=== PATIENT | female | born 1975 | race Caucasian/White ===

== ENCOUNTER → 2017-05-16 | Outpatient (CLI) | payer BC ==
[2016-08-01 01:00] VITALS: BP 138/88
[~2017-05-16] MED LIST: ATORVASTATIN CA10 MG PO; BENTYL PO; BUFEN200 MG PO; CIPRO 500MG TA500 MG PO; CLINDAMYCIN HC300 MG PO; CLINDAMYCIN300 MG PO; HCTZ 25MG25 MG PO; HCTZ PO; LEVOTHYROXIN0.025 MG PO; LEVOTHYROXINE0.05 MG PO; MELOXICAM7.5 MG PO; METRONIDAZOLE500 MG PO; NORCO 325 MG-51 TA1 PO; NORETHINDRONE AC5 M1 PO; OMEPRAZOLE40 MG PO; POTASSIUM CHLO20 ME3 PO; ULTRAM50 MG PO; ZOFRAN ODT8 MG PO
== END ==
LOC: RAD 07:45
DX: M79.671 Pain in right foot (principal); M77.31 Calcaneal spur, right foot

== ENCOUNTER 2018-02-01 20:29 | Emergency (ER) | payer BC ==
[~2018-02-01] VITALS: Ht 165.1 cm; Wt 115.9 kg
[2018-02-01] MEDS ORDERED: WELLBUTRIN (20:54)
[2018-02-01 21:01] LABS: BASO # 0.1 (0.02-0.10); EOS # 0.2 (0.04-0.40); EOS % 1.8 % (1.0-5.0); HEMATOCRIT 43.2 % (37.0-47.0); HEMOGLOBIN 14.9 g/dL (12.5-16.0); LYMPH# 2.6 (1.50-4.00); MEAN CELL VOLUME 91 fl (78-100); MEAN CORPUSCULAR HEMOGLOBIN 31 pg (27-31); MEAN CORPUSCULAR HGB CONC 35 g/dL (33-37); MEAN PLATELET VOLUME 10.3 fl (7.4-10.4); MONO # 0.5 (0.20-0.80); NEU # 6.3 (1.40-6.50); PLATELET COUNT 306 K/mm3 (130-400); RED BLOOD COUNT 4.74 M/mm3 (4.10-5.30); RED CELL DISTRIBUTION WIDTH 13.1 % (11.5-14.5); WHITE BLOOD COUNT 9.7 K/mm3 (4.8-10.8)
[2018-02-01 21:11] LABS: ALBUMIN 4.1 g/dL (3.5-5.0); BUN/CREATININE RATIO 13.1 (6.0-26.0); CALCIUM 8.7 mg/dL (8.4-10.2); POTASSIUM 3.2 mmol/L (3.6-5.0); TOTAL BILIRUBIN 0.6 mg/dL (0.2-1.3); TOTAL PROTEIN 7.5 g/dL (6.3-8.2)
[2018-02-01 21:38] LABS: D-DIMER 0.14 mg/L FEU (0.15-0.50)
[2018-02-01] MEDS ORDERED: POTASSIUM CHLO20 ME4 PO (21:55)
[2018-02-01] MEDS ORDERED: METOPROLOL SUCC25 M1 PO (21:55)
[2018-02-01 22:06] VITALS: BP 145/98
== END 2018-02-01 22:06 | disposition home or self-care (01) ==
LOC: ED 20:29
PROVIDERS: Family Medicine
DX: R00.2 Palpitations (principal); R06.4 Hyperventilation; I10 Essential (primary) hypertension; F41.9 Anxiety disorder, unspecified; E03.9 Hypothyroidism, unspecified; Z79.899 Other long term (current) drug therapy

== ENCOUNTER → 2018-02-27 | Outpatient (CLI) | payer BC ==
[2018-02-01 22:06] VITALS: BP 145/98
[~2018-02-27] MED LIST changes: +METOPROLOL SUCC25 M1 PO; +POTASSIUM CHLO20 ME4 PO; +WELLBUTRIN
== END ==
LOC: MAMMO 08:26
DX: Z12.31 Encounter for screening mammogram for malignant neoplasm of breast (principal)

== ENCOUNTER → 2018-03-10 | Outpatient (CLI) | payer BC | LOC: MAMMO 08:24 | DX: N60.01 Solitary cyst of right breast (principal) ==

== ENCOUNTER 2018-03-23 21:44 | Emergency (ER) | payer BC ==
[~2018-03-23] VITALS: Ht 162.6 cm; Wt 118.2 kg
[2018-03-23] MEDS ORDERED: METOPROLOL SUCC25 M1 PO (22:04)
[2018-03-23] MEDS ORDERED: NORCO 325 MG-51 TA1 PO (22:50)
[2018-03-23] MEDS ORDERED: ZOFRAN ODT4 MG PO (22:50)
[2018-03-23 23:00] VITALS: BP 150/91
== END 2018-03-23 23:00 | disposition home or self-care (01) ==
LOC: ED 21:44
DX: S06.0X0A Concussion without loss of consciousness, initial encounter (principal); S00.31XA Abrasion of nose, initial encounter; W10.8XXA Fall (on) (from) other stairs and steps, initial encounter; Y92.008 Other place in unspecified non-institutional (private) residence as the place of occurrence of the external cause; I10 Essential (primary) hypertension; Z79.899 Other long term (current) drug therapy

== ENCOUNTER → 2018-06-09 | Outpatient (CLI) | payer BC ==
[~2018-06-09] MED LIST changes: +ZOFRAN ODT4 MG PO
== END ==
LOC: RAD 09:51
DX: R10.84 Generalized abdominal pain (principal); I10 Essential (primary) hypertension; E03.9 Hypothyroidism, unspecified; E78.2 Mixed hyperlipidemia

== ENCOUNTER → 2018-07-07 | Day surgery (SDC) | payer BC | LOC: MSO 10:19 | DX: K29.00 Acute gastritis without bleeding (principal); K21.9 Gastro-esophageal reflux disease without esophagitis; I10 Essential (primary) hypertension; F17.210 Nicotine dependence, cigarettes, uncomplicated; Z79.899 Other long term (current) drug therapy; E07.9 Disorder of thyroid, unspecified; D64.9 Anemia, unspecified; E66.01 Morbid (severe) obesity due to excess calories | CPT/HCPCS: 00731; A4649; J2704; J3010; J7120 ==

== ENCOUNTER → 2019-03-18 | Outpatient (CLI) | payer BC | LOC: MAMMO 03-11 08:30 | DX: Z12.31 Encounter for screening mammogram for malignant neoplasm of breast (principal) ==

== ENCOUNTER → 2020-01-15 | Outpatient (CLI) | payer BC | LOC: RAD 17:06 | DX: M25.562 Pain in left knee (principal) ==

== ENCOUNTER → 2020-03-29 | Outpatient (CLI) | payer BC | LOC: MAMMO 08:08 | DX: Z12.31 Encounter for screening mammogram for malignant neoplasm of breast (principal); N63.10 Unspecified lump in the right breast, unspecified quadrant ==

== ENCOUNTER → 2020-05-31 | Outpatient (CLI) | payer BC | LOC: PT 09:29 → EDSTATUS 09:30 | DX: Z98.890 Other specified postprocedural states (principal) ==

== ENCOUNTER 2020-07-14 09:15 | Outpatient (RCR) | payer BC | END 2020-07-14 09:45 | disposition home or self-care (01) | LOC: PT 09:15 | DX: Z98.890 Other specified postprocedural states (principal) ==

== ENCOUNTER → 2020-12-08 | Outpatient (REF) ==
[~2020-12-08] MED LIST changes: +BENTYL 20MG20 MG/TAB PO; -BENTYL PO; +DITROPAN 5MG TAB5 MG PO; +HYDROCHLOROTH12.5 M2 PO; +ROSUVASTATIN CA40 MG PO
== END ==
LOC: LAB 08:17 → EDSTATUS 08:18
DX: N89.8 Other specified noninflammatory disorders of vagina (principal)

== ENCOUNTER → 2021-05-10 | Outpatient (CLI) | payer BC | LOC: MAMMO 04-04 08:30 | DX: Z12.31 Encounter for screening mammogram for malignant neoplasm of breast (principal); R92.0 Mammographic microcalcification found on diagnostic imaging of breast ==

== ENCOUNTER → 2021-05-15 | Outpatient (CLI) | payer BC | LOC: MAMMO 06:57 | DX: R92.0 Mammographic microcalcification found on diagnostic imaging of breast (principal) ==

== ENCOUNTER 2021-05-26 16:17 | Emergency (ER) | payer BC ==
[~2021-05-26] VITALS: Ht 165.1 cm; Wt 118.2 kg
[~2021-05-26 16:17] MED LIST changes: -DITROPAN 5MG TAB5 MG PO; -HYDROCHLOROTH12.5 M2 PO; -ROSUVASTATIN CA40 MG PO
[2021-05-26] MEDS ORDERED: HYDROCHLOROTH12.5 M2 PO (16:59)
[2021-05-26] MEDS ORDERED: DITROPAN 5MG TAB5 MG PO (17:00)
[2021-05-26] MEDS ORDERED: NORETHINDRONE AC5 M1 PO (17:00)
[2021-05-26] MEDS ORDERED: ROSUVASTATIN CA40 MG PO (17:03)
[2021-05-26 17:43] LABS: BASO # 0.05 (0.02-0.10); EOS # 0.14 (0.04-0.40); EOS % 1.8 % (1.0-5.0); HEMATOCRIT 40.2 % (37.0-47.0); HEMOGLOBIN 13.7 g/dL (12.5-16.0); MEAN CELL VOLUME 90 fl (78-100); MEAN CORPUSCULAR HEMOGLOBIN 31 pg (27-31); MEAN CORPUSCULAR HGB CONC 34 g/dL (33-37); MEAN PLATELET VOLUME 10.6 fl (7.4-10.4); MONO # 0.54 (0.20-0.80); NEU # 4.48 (1.40-6.50); PLATELET COUNT 256 K/mm3 (130-400); RED BLOOD COUNT 4.45 M/mm3 (4.10-5.30); WHITE BLOOD COUNT 7.8 K/mm3 (4.8-10.8)
[2021-05-26 17:56] LABS: ALBUMIN 3.9 g/dL (3.5-5.0)
[2021-05-26 17:57] LABS: POTASSIUM 3.5 mmol/L (3.5-5.1)
[2021-05-26 17:58] LABS: CALCIUM 9.8 mg/dL (8.3-10.5)
[2021-05-26 17:59] LABS: TOTAL PROTEIN 7.1 g/dL (6.4-8.3)
[2021-05-26 18:01] LABS: TOTAL BILIRUBIN 0.4 mg/dL (0.2-1.2)
[2021-05-26 18:09] LABS: D-DIMER 0.19 mg/L FEU (0.15-0.50)
[2021-05-26 20:41] VITALS: BP 145/93
== END 2021-05-26 20:41 | disposition home or self-care (01) ==
LOC: ED 16:17
PROVIDERS: Nurse Practitioner
DX: R00.2 Palpitations (principal); R06.02 Shortness of breath; T44.7X6A Underdosing of beta-adrenoreceptor antagonists, initial encounter; I10 Essential (primary) hypertension; F41.9 Anxiety disorder, unspecified; F32.A Depression, unspecified; E78.5 Hyperlipidemia, unspecified; E03.9 Hypothyroidism, unspecified; K21.9 Gastro-esophageal reflux disease without esophagitis; F17.210 Nicotine dependence, cigarettes, uncomplicated; Z79.890 Hormone replacement therapy; Z79.899 Other long term (current) drug therapy

== ENCOUNTER → 2021-10-02 | Outpatient (CLI) | payer OTHER ==
[~2021-10-02] MED LIST changes: +DITROPAN 5MG TAB5 MG PO; +HYDROCHLOROTH12.5 M2 PO; +ROSUVASTATIN CA40 MG PO
== END ==
LOC: LAB 11:07
DX: U07.1 COVID-19 (principal)

== ENCOUNTER → 2022-03-01 | Outpatient (CLI) | payer OTHER | LOC: RAD 08:24 | DX: M47.816 Spondylosis without myelopathy or radiculopathy, lumbar region (principal); W10.9XXA Fall (on) (from) unspecified stairs and steps, initial encounter ==

== ENCOUNTER → 2022-03-02 | Outpatient (CLI) | payer OTHER | LOC: RAD 16:23 | DX: M79.641 Pain in right hand (principal); M79.642 Pain in left hand; R20.0 Anesthesia of skin ==

== ENCOUNTER → 2022-05-21 | Outpatient (CLI) | payer OTHER | LOC: MAMMO 15:23 | DX: Z12.31 Encounter for screening mammogram for malignant neoplasm of breast (principal) ==

== ENCOUNTER → 2022-06-22 | Outpatient (CLI) | payer OTHER | LOC: RAD 14:21 | DX: M17.0 Bilateral primary osteoarthritis of knee (principal) ==

== ENCOUNTER → 2024-06-08 | Outpatient (CLI) | payer BC | LOC: MAMMO 09:30 | DX: Z12.31 Encounter for screening mammogram for malignant neoplasm of breast (principal) ==